=== PATIENT | male | born 1995 | race Caucasian/White ===

== ENCOUNTER 2019-04-30 08:37 | Emergency (ER) | payer OTHER, SELFPAY ==
[2019-04-30 08:40] VITALS: BP 141/88; PULSE 94; RESP 18; TEMP 36.5; O2SAT 100; BMI 25.0
--- NOTE | 2019-04-30 08:46 | ED_ITS ---
HPI - Dizziness General: Chief Complaint: Dizziness Stated Complaint: ams Time Seen by Provider: 04/30/19 08:46 Source: patient Mode of arrival: ambulatory Limitations: no limitations History of Present Illness: HPI Narrative: Patient is a 23-year-old male who presents to ED today with a complaint of presyncope; patient states he was working when he became dizzy/lightheaded, had tunnel vision, felt warm; patient states he knew he was about to pass out so sat down; he apparently has had several previous episodes like this in the past and at one point was told it was caused by dehydration; he denies anxiety/panic attacks; patient states he feels better upon arrival MD elicited complaint: dizziness, lightheadedness and near syncope Onset (ago): minute(s) Timing: sudden onset Severity: mild History of similar symptoms: Yes Exacerbating factors: nothing Relieving factors: nothing Associated symptoms: Reports no associated symptoms; Denies chest pain, chills, headache(s), nausea, palpitations, syncope or vomiting Associated neuro symptoms: Reports no associated symptoms; Deny numbness in extremities Review of Systems Const: Denies: fever or chills Card: Reports: lightheadedness and pre-syncope; Denies: chest pain, palpitations, irregular heart rhythm, syncope or shortness of breath on exertion Resp: Denies: shortness of breath GI: Denies: abdominal pain, nausea or vomiting Musc: Denies: neck pain, back pain or joint pain Skin/Breast: Denies: rash Neuro: Denies: headache, numbness in extremities, weakness in extremities, lack of coordination, difficulty walking, frequent falls or slurred speech Psych: Denies: anxiety PFSH ED PFSH: Statuses (acute, chronic, etc) shown below reflect problem list status as previously entered and may not be historically accurate Social History Smoking and tobacco status: never smoked Physical Exam Const: COMMON NORMALS: no apparent distress, average body habitus, oriented x3, healthy appearing and well nourished EXAM LIMITATIONS: no altered mental status GENERAL APPEARANCE: cooperative ORIENTATION/CONSCIOUSNESS: Yes awake, Yes oriented to person, Yes oriented to place and Yes oriented to time HENMT: COMMON NORMALS: normocephalic and head/scalp atraumatic HEAD & SCALP: normal to inspection, normocephalic and atraumatic Eye: COMMON NORMALS: PERRL and EOMs intact bilaterally PUPIL: Yes PERRL Neck/C-Spine: COMMON NORMALS: full ROM, supple and no meningeal signs Chest: COMMONS NORMALS: inspection of chest normal Resp: COMMON NORMALS: normal respiratory effort and clear to auscultation bilaterally AUSCULTATION: clear to auscultation bilaterally Cardio: COMMON NORMALS: regular rate and regular rhythm RATE: regular rate RHYTHM: regular rhythm GI: COMMON NORMALS: normal to inspection, nondistended, normoactive bowel sounds Extremity: COMMON NORMALS: normal to inspection and full ROM Neuro: SCARLET COMA SCALE: document GCS findings [place] coma scale eye opening: Spontaneous [place] coma scale verbal response: Orientated Scarlet coma scale motor response: Obey commands [place] coma scale total score: 15 COMMON NORMALS: oriented x3, moves all extremities, no focal motor deficits and no sensory deficits noted SENSORIUM/ORIENTATION: Yes oriented to person, Yes oriented to place and Yes oriented to time MENINGEAL SIGNS: Yes no meningeal signs CRANIAL NERVES: Yes CN normal except as noted COORDINATION/BALANCE: [id number] test normal and ukao-yu-gotk test normal SPEECH: speech normal GAIT: Yes normal gait COORDINATION: [id number] test normal and ymii-ta-iisa test normal Psych: COMMON NORMALS: mental status grossly normal Skin: COMMON NORMALS: no rashes or lesions noted GENERAL SKIN EXAM: no rashes or lesions noted Course ED course: [place] [address] XRay Report Signed Patient: Tavon Luna MR#: [id number] : 1995 Acct:[id number] Age/Sex: 23 / M ADM Date: 04/30/19 Loc: ER Attending Dr: Ordering Physician: Jordyn Macario Date of Service: 04/30/19 Procedure(s): XR chest 1V 22148 Accession Number(s): [id number] Report Number: [id number] WS: [id number] Portable AP upright chest, 04/30/2019 day Clinical Data: syncope Comparison: Portable chest, 01/01/2018 Findings: No nodules, masses or effusions are seen. The heart is normal. The pulmonary vascularity is not increased. No pneumonia or pneumothorax is seen. There is a levoscoliosis of the thoracic spine. XR/XR chest 1V 41939 Impression: Negative chest. Dictated By: Tasia Kelsey MD Signed By: Tasia Kelsey MD Signed Date/Time:04/30/19899 DD/ 09 Vital Signs: Vital signs: Vital Signs Temperature 97.9 F 04/30/19 10:04 Pulse Rate 83 04/30/19 10:04 Respiratory Rate 15 04/30/19 10:04 Blood Pressure 120/69 04/30/19 10:04 Pulse Oximetry 100 04/30/19 10:04 MDM - Dizziness MDM Narrative: Medical decision making narrative: pt has had several similar events previously; work up here including labs, trop, ekg, CXR all normal; he has follow up with Dr. Moody next week Lab Data: Attestation: I reviewed the patient's lab results. Labs: Lab Results 04/30/19 04/30/19 04/30/19 Range/Units 08:55 08:55 08:55 WBC 8.6 (4.0-10.0) 10^3/ uL RBC 4.84 (4.1-5.3) 10^6/u L Hgb 14.7 (11.7-16.6) g/dL Hct 43.5 (42.0-52.0) % MCV 89.9 (80-94) fL MCH 30.4 (28.0-34.0) pg MCHC 33.8 (30.0-36.0) g/dL RDW 12.1 (12.1-15.1) % Plt Count 176 (130-400) 10^3/c mm MPV 10.6 H (7.4-10.4) fL Neut % (Auto) 75.9 % Lymph % (Auto) 17.0 % Nuckolls % (Auto) 6.2 % Eos % (Auto) 0.3 % Baso % (Auto) 0.3 % Neut # (Auto) 6.5 (1.8-7.7) 10^3/u L Lymph # (Auto) 1.5 (0.8-4.8) 10^3/u L N[place]olls # (Auto) 0.5 (0.2-0.9) 10^3/u L Eos # (Auto) 0.0 (0.0-0.8) 10^3/u L Baso # (Auto) 0.0 (0.0-0.1) 10^3/u L Nucleated RBC % (a uto) 0 % Nucleated RBCs # 0.0 /100WBC Sodium 140 (136-145) mmol/L Potassium 3.9 (3.5-5.1) mmol/L Chloride 105 (98-107) mmol/L Carbon Dioxide 24 (22-29) mmol/L Anion Gap 14.9 (5-19) BUN 17 (6-20) mg/dL Creatinine 1.0 (0.7-1.2) mg/dL GFR Calculation 94.3 (90-130) mL/min Glucose 112 H (74-109) mg/dL Calcium 10.0 (8.6-10.0) mg/Dl Total Bilirubin 0.4 (0.15-1.2) mg/dL AST 18 (0-40) U/L ALT 18 (0-41) U/L Alkaline Phosphata se 65 (40-130) IU/L Troponin T Baselin e 6 (0-15) ng/mL Total Protein 6.6 (6.6-8.7) g/dL Albumin 5.0 (3.5-5.2) g/dL Globulin 1.6 (1.3-4.6) g/dL Urine Opiates Scre en (Negative) ng/mL Ur Barbiturates Sc reen (Negative) ng/mL Ur Phencyclidine S crn (Negative) ng/mL Ur Amphetamines Sc reen (Negative) ng/mL U Benzodiazepines Scrn (Negative) ng/mL Urine Cocaine Scre en (Negative) ng/mL U Marijuana (THC) Screen (Negative) ng/mL 04/30/19 Range/Units 09:19 WBC (4.0-10.0) 10^3/ uL RBC (4.1-5.3) 10^6/u L Hgb (11.7-16.6) g/dL Hct (42.0-52.0) % MCV (80-94) fL MCH (28.0-34.0) pg MCHC (30.0-36.0) g/dL RDW (12.1-15.1) % Plt Count (130-400) 10^3/c mm MPV (7.4-10.4) fL Neut % (Auto) % Lymph % (Auto) % [place]olls % (Auto) % Eos % (Auto) % Baso % (Auto) % Neut # (Auto) (1.8-7.7) 10^3/u L Lymph # (Auto) (0.8-4.8) 10^3/u L [place]olls # (Auto) (0.2-0.9) 10^3/u L Eos # (Auto) (0.0-0.8) 10^3/u L Baso # (Auto) (0.0-0.1) 10^3/u L Nucleated RBC % (a uto) % Nucleated RBCs # /100WBC Sodium (136-145) mmol/L Potassium (3.5-5.1) mmol/L Chloride (98-107) mmol/L Carbon Dioxide (22-29) mmol/L Anion Gap (5-19) BUN (6-20) mg/dL Creatinine (0.7-1.2) mg/dL GFR Calculation (90-130) mL/min Glucose (74-109) mg/dL Calcium (8.6-10.0) mg/Dl Total Bilirubin (0.15-1.2) mg/dL AST (0-40) U/L ALT (0-41) U/L Alkaline Phosphata se (40-130) IU/L Troponin T Baselin e (0-15) ng/mL Total Protein (6.6-8.7) g/dL Albumin (3.5-5.2) g/dL Globulin (1.3-4.6) g/dL Urine Opiates Scre en Negative (Negative) ng/mL Ur Barbiturates Sc reen Negative (Negative) ng/mL Ur Phencyclidine S crn Negative (Negative) ng/mL Ur Amphetamines Sc reen Negative (Negative) ng/mL U Benzodiazepines Scrn Negative (Negative) ng/mL Urine Cocaine Scre en Negative (Negative) ng/mL U Marijuana (THC) Screen Negative (Negative) ng/mL EKG Data^: EKG 1: Attestation: I personally reviewed and interpreted this EKG as follows: Interpretation: normal sinus Discharge Plan Discharge Patient Disposition: Home, Self-Care Clinical Impression: Pre-syncope Condition: Stable Prescriptions: No Action Ritalin 20 mg Tablet See Rx Instructions .ROUTE .COMPLEX RF: 0 Discharge Orders: Discharge Order (Routine); Ordered 04/30/19 Ordered By: Jordyn Macario Referrals: Akanksha Herzog MD [Primary Care Provider] - Toby Moody MD [Family Provider] - 4-7 days Discharge Activity: Resume usual activity Patient Instructions: Near Syncope (ED) Discharge Date/Time: 04/30/19 10:29 Coding Level of Care Code ED Automation Qa Tester for Edelmira Kunz
--- NOTE | 2019-04-30 08:46 | XR_ITS ---
WS: [id number] Portable AP upright chest, 04/30/2019 Clinical Data: syncope Comparison: Portable chest, 01/01/2018 Findings: No nodules, masses or effusions are seen. The heart is normal. The pulmonary vascularity is not increased. No pneumonia or pneumothorax is seen. There is a levoscoliosis of the thoracic spine. XR/XR chest 1V 39249 Impression: Negative chest.
--- NOTE | 2019-04-30 08:47 | ECG_ITS ---
Measurements Intervals [place] Rate: 76 P: 69 SC: 134 QRS: 52 QRSD: 95 T: 44 QT: 341 QTc: 384 SINUS RHYTHM Compared to ECG 09/14/2018 09:16:06 No significant changes Electronically Signed On 04-30-2019 17:09:28 FURNITURE UPHOLSTERY MECHANIC by Judith Earl M.D. [id number]
[2019-04-30] MEDS: sodium chloride 0.9% 1,000 ML 999 ML IV ×2 (08:57→09:42)
[2019-04-30 08:59] LABS: Basophils % 0.3 %; Eosinophils % 0.3 %; Hematocrit 43.5 % (42.0-52.0); Hemoglobin 14.7 g/dL (11.7-16.6); Lymphocytes # 1.5 10^3/uL (0.8-4.8); Mean Corpuscular HGB Conc 33.8 g/dL (30.0-36.0); Mean Corpuscular Hemoglobin 30.4 pg (28.0-34.0); Mean Corpuscular Volume 89.9 fL (80-94); Mean Platelet Volume 10.6 fL (7.4-10.4); Monocytes # 0.5 10^3/uL (0.2-0.9); Monocytes % 6.2 %; Neutrophils # 6.5 10^3/uL (1.8-7.7); Neutrophils % 75.9 %; Nucleated Red Blood Cells % 0 %; Platelet Count 176 10^3/cmm (130-400); Red Blood Count 4.84 10^6/uL (4.1-5.3); Red Cell Distribution Width 12.1 % (12.1-15.1); White Blood Count 8.6 10^3/uL (4.0-10.0)
[2019-04-30 09:03] LABS: Add RBC Morph No
[2019-04-30 09:09] VITALS: BP 141/88; PULSE 101; RESP 14; TEMP 36.9; O2SAT 98
[2019-04-30 09:16] LABS: Troponin(5th) Baseline 6 ng/mL (0-15)
[2019-04-30 09:17] LABS: Alanine Aminotransferase 18 U/L (0-41); Alkaline Phosphatase 65 IU/L (40-130); Anion Gap 14.9 (5-19); Aspartate Amino Transferase 18 U/L (0-40); Blood Urea Nitrogen 17 mg/dL (6-20); Carbon Dioxide 24 mmol/L (22-29); Chloride 105 mmol/L (98-107); Globulin 1.6 g/dL (1.3-4.6); Glomerular Filtration Rate 94.3 mL/min (90-130); Glucose 112 mg/dL (74-109); Potassium 3.9 mmol/L (3.5-5.1); Sodium 140 mmol/L (136-145); Total Bilirubin 0.4 mg/dL (0.15-1.2); Total Protein 6.6 g/dL (6.6-8.7)
[2019-04-30 09:40] VITALS: BP 120/69; PULSE 82; RESP 16; O2SAT 100
[2019-04-30 10:04] VITALS: BP 120/69; PULSE 83; RESP 15; TEMP 36.6; O2SAT 100
[2019-04-30 10:20] LABS: Amphetamines Screen Urine Negative (Negative); Barbiturates Screen Urine Negative (Negative); Benzodiazepines Screen Urine Negative (Negative); Cocaine Screen Urine Negative (Negative); Opiate Screen Urine Negative (Negative); PCP Screen Urine Negative (Negative); THC Screen Urine Negative (Negative)
--- NOTE | 2019-05-01 10:29 | DCPLANNER ---
flight engineer manager had message that patient is to follow up with Dr. Herzog. flight engineer manager called the office of Dr. Herzog, spoke with Oxana, a follow up appointment is scheduled for Sunday, June 30, 2019 at 12:[address] Herzog. flight engineer manager called patient, spoke with patients mother and gave the mother the appointment information.
--- NOTE | 2019-07-07 14:26 | DCPLANNER ---
Patient did attend appointment scheduled for 06.30.[address] Herzog.
== END 2019-04-30 10:29 | disposition home or self-care (01) ==
PROVIDERS: Emergency Provider Physician Assistant; Family Provider Family Medicine; PCP Specialist
DX: R55 Syncope and collapse (principal)
CPT/HCPCS: 36415; 71045; 80053; 80307; 84484; 85025; 93005; 96360; 96361; 99282; J7030

== ENCOUNTER 2019-05-15 07:28 | Emergency (ER) | payer OTHER, SELFPAY ==
[2019-05-15 07:30] VITALS: BP 142/83; PULSE 103; RESP 18; TEMP 36.5; O2SAT 98; BMI 24.7
--- NOTE | 2019-05-15 07:31 | ED_ITS ---
Entered by Baylee Queen, acting as scribe for HPI - Dizziness General: Chief Complaint: Dizziness Stated Complaint: Weakness, dizzy, shakes Time Seen by Provider: 05/15/19 07:30 Source: patient and family Mode of arrival: ambulatory Limitations: no limitations History of Present Illness: HPI Narrative: 23 yo male presents with dizziness and lightheadedness. 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 Pt states he has had siliamar symptoms in the past and he is wearing a heart monitor right now due to the symptoms by Dr. Herzog. Pt states he started feeling shaky then dizzy. pt states walking and exertion makes this worse and nothing makes this better. 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) Timing: sudden onset Severity: moderate Description: lightheadedness History of similar symptoms: Yes Exacerbating factors: exertion (folding laundry) Relieving factors: nothing Associated symptoms: Reports other (shaky); Denies chest pain, chills, headache(s), malaise, nausea, nasal congestion, palpitations, syncope or vomiting Associated neuro symptoms: Deny confusion, difficulty swallowing or numbness in extremities Review of Systems Const: Denies: fever, chills, body aches, fatigue, malaise or night sweats ENMT: Denies: throat pain, oral sores/lesions, dental pain, nasal discharge or nasal congestion Card: Denies: chest pain, palpitations, irregular heart rhythm, edema, syncope, shortness of breath on exertion, shortness of breath when lying down or leg pain with exertion Resp: Denies: shortness of breath, productive cough, non-productive cough or wheezing GI: Denies: abdominal pain, nausea, vomiting, vomiting blood, coffee grounds in vomit, difficulty swallowing, heartburn/indigestion, diarrhea, constipation, cramping, blood in stool or black tarry stool : Denies: flank pain, difficulty urinating, painful urination, urinary frequency, urinary urgency, urinary incontinence or blood in urine Musc: Denies: neck pain, back pain, extremity pain, extremity swelling, joint pain or joint swelling Skin/Breast: Denies: rash, itching or redness Neuro: Denies: headache, numbness in extremities, weakness in extremities, changes in sensation, lack of coordination, difficulty walking, frequent falls or confusion Psych: Denies: anxiety, depression, loss of interest, visual hallucinations, auditory hallucinations, suicidal ideation or homicidal ideation Endo: Denies: excessive urination, excessive thirst, tired all the time or cold intolerance Aldo/Lymph: Denies: easy bruising, easy bleeding, petechiae, enlarged lymph nodes or tender lymph nodes PFSH ED PFSH: Statuses (acute, chronic, etc) shown below reflect problem list status as previously entered and may not be historically accurate Social History Smoking and tobacco status: never smoked Physical Exam Const: COMMON NORMALS: average body habitus, oriented x3 and alert GENERAL APPEARANCE: cooperative, comfortable, well kempt and well developed NUTRITIONAL APPEARANCE: obese ORIENTATION/CONSCIOUSNESS: Yes awake, Yes oriented to person and Yes oriented to place HENMT: COMMON NORMALS: normocephalic, head/scalp atraumatic, EAC's normal, TM's normal bilaterally, external nose normal, moist oral mucous membranes and oropharynx normal HEAD & SCALP: normocephalic and atraumatic NOSE: external nose normal EXTERNAL AUDITORY CANAL: EAC's normal TYMPANIC MEMBRANE: TM's normal bilaterally MOUTH: oral and palatal mucosa normal, lip normal and tongue normal THROAT: posterior oropharynx normal and tonsils normal Eye: COMMON NORMALS: PERRL, EOMs intact bilaterally, conjunctivae normal and no scleral icterus CONJUNCTIVA: Yes conjunctivae normal PUPIL: Yes PERRL Neck/C-Spine: COMMON NORMALS: full ROM, no lymphadenopathy, supple, no meningeal signs and thyroid normal THYROID: thyroid normal and asymmetrical Lymph: LYMPHATIC: no lymphadenopathy noted Resp: COMMON NORMALS: normal respiratory effort, no retractions, no use of accessory muscles and clear to auscultation bilaterally AUSCULTATION: clear to auscultation bilaterally Cardio: COMMON NORMALS: regular rate and regular rhythm RATE: regular rate RHYTHM: regular rhythm HEART SOUNDS: no murmurs GI: COMMON NORMALS: normal to inspection, nondistended, normoactive bowel sounds, soft to palpation and no hepatosplenomegaly PALPATION: Yes soft and Yes no hepatosplenomegaly : COMMON NORMALS: Yes no CVA tenderness BLADDER/KIDNEY EXAM: Yes no CVA tenderness Back/Pelvis: COMMON NORMALS: no CVA tenderness LUMBAR SPINE/LOWER BACK: Yes normal to inspection Extremity: COMMON NORMALS: no clubbing, cyanosis or edema, no calf tenderness and no pedal edema Neuro: COMMON NORMALS: oriented x3 SENSORIUM/ORIENTATION: Yes alert, Yes oriented to person and Yes oriented to place MENINGEAL SIGNS: Yes no meningeal signs Psych: APPEARANCE: Yes well kempt Skin: COMMON NORMALS: no rashes or lesions noted and skin turgor normal GENERAL SKIN EXAM: no rashes or lesions noted and turgor normal Course ED course: Work-up here in the ER unremarkable. We will go ahead and discharge the patient home he has an ongoing work-up through his primary care doctor encouraged him to complete he has a Holter monitor on this time. We will go ahead and discharge him home. Return if has any problems. Vital Signs: Vital signs: Vital Signs Temperature 97.7 F 05/15/19 07:30 Pulse Rate 87 05/15/19 09:03 Respiratory Rate 16 05/15/19 09:03 Blood Pressure 131/76 05/15/19 09:03 Pulse Oximetry 99 05/15/19 09:03 MDM - Dizziness Lab Data: Labs: Lab Results 05/15/19 05/15/19 05/15/19 Range/Units 07:40 07:40 07:40 WBC 6.0 (4.0-10.0) 10^3/ uL RBC 5.04 (4.1-5.3) 10^6/u L Hgb 14.8 (11.7-16.6) g/dL Hct 44.2 (42.0-52.0) % MCV 87.7 (80-94) fL MCH 29.4 (28.0-34.0) pg MCHC 33.5 (30.0-36.0) g/dL RDW 12.3 (12.1-15.1) % Plt Count 188 (130-400) 10^3/c mm MPV 11.4 H (7.4-10.4) fL Neut % (Auto) 58.0 % Lymph % (Auto) 31.5 % Young % (Auto) 8.8 % Eos % (Auto) 1.0 % Baso % (Auto) 0.5 % Neut # (Auto) 3.5 (1.8-7.7) 10^3/u L Lymph # (Auto) 1.9 (0.8-4.8) 10^3/u L Young # (Auto) 0.5 (0.2-0.9) 10^3/u L Eos # (Auto) 0.1 (0.0-0.8) 10^3/u L Baso # (Auto) 0.0 (0.0-0.1) 10^3/u L Nucleated RBC % (a uto) 0 % Nucleated RBCs # 0.0 /100WBC Sodium 137 (136-145) mmol/L Potassium 3.9 (3.5-5.1) mmol/L Chloride 99 (98-107) mmol/L Carbon Dioxide 24 (22-29) mmol/L Anion Gap 17.9 (5-19) BUN 20 (6-20) mg/dL Creatinine 1.0 (0.7-1.2) mg/dL GFR Calculation 94.3 (90-130) mL/min Glucose 129 H (74-109) mg/dL Calcium 10.1 H (8.6-10.0) mg/Dl Total Bilirubin 1.1 (0.15-1.2) mg/dL AST 22 (0-40) U/L ALT 18 (0-41) U/L Alkaline Phosphata se 63 (40-130) IU/L Troponin T Baselin e 6 (0-15) ng/mL Total Protein 7.4 (6.6-8.7) g/dL Albumin 5.1 (3.5-5.2) g/dL Globulin 2.3 (1.3-4.6) g/dL Urine Color (Yellow) Urine Appearance (CLEAR) Urine pH (5-7) Ur Specific Gravit y (1.005-1.030) Urine Protein (Negative) Urine Glucose (UA) (Normal) Urine Ketones (Negative) Urine Occult Blood (Negative) Urine Nitrate (Negative) Urine Bilirubin (NEGATIVE) Urine Urobilinogen (Negative) mg/dL Ur Leukocyte Elif ase (Negative) 05/15/19 Range/Units 08:17 WBC (4.0-10.0) 10^3/ uL RBC (4.1-5.3) 10^6/u L Hgb (11.7-16.6) g/dL Hct (42.0-52.0) % MCV (80-94) fL MCH (28.0-34.0) pg MCHC (30.0-36.0) g/dL RDW (12.1-15.1) % Plt Count (130-400) 10^3/c mm MPV (7.4-10.4) fL Neut % (Auto) % Lymph % (Auto) % Young % (Auto) % Eos % (Auto) % Baso % (Auto) % Neut # (Auto) (1.8-7.7) 10^3/u L Lymph # (Auto) (0.8-4.8) 10^3/u L Young # (Auto) (0.2-0.9) 10^3/u L Eos # (Auto) (0.0-0.8) 10^3/u L Baso # (Auto) (0.0-0.1) 10^3/u L Nucleated RBC % (a uto) % Nucleated RBCs # /100WBC Sodium (136-145) mmol/L Potassium (3.5-5.1) mmol/L Chloride (98-107) mmol/L Carbon Dioxide (22-29) mmol/L Anion Gap (5-19) BUN (6-20) mg/dL Creatinine (0.7-1.2) mg/dL GFR Calculation (90-130) mL/min Glucose (74-109) mg/dL Calcium (8.6-10.0) mg/Dl Total Bilirubin (0.15-1.2) mg/dL AST (0-40) U/L ALT (0-41) U/L Alkaline Phosphata se (40-130) IU/L Troponin T Baselin e (0-15) ng/mL Total Protein (6.6-8.7) g/dL Albumin (3.5-5.2) g/dL Globulin (1.3-4.6) g/dL Urine Color Yellow (Yellow) Urine Appearance Clear (CLEAR) Urine pH 6 (5-7) Ur Specific Gravit y 1.020 (1.005-1.030) Urine Protein Neg (Negative) Urine Glucose (UA) Norm (Normal) Urine Ketones Negative (Negative) Urine Occult Blood Neg (Negative) Urine Nitrate Negative (Negative) Urine Bilirubin Neg (NEGATIVE) Urine Urobilinogen 1 H (Negative) mg/dL Ur Leukocyte Elif ase Negative (Negative) Imaging Data^: CXR: Radiologist's impression: Portable AP upright chest, 04/30/2019 day Clinical Data: syncope Comparison: Portable chest, 01/01/2018 Findings: No nodules, masses or effusions are seen. The heart is normal. The pulmonary vascularity is not increased. No pneumonia or pneumothorax is seen. There is a levoscoliosis of the thoracic spine. XR/XR chest 1V [id number] Impression: Negative chest. Dictated By: Tasia Kelsey MD EKG Data^: EKG 1: Attestation: I personally reviewed and interpreted this EKG as follows: EKG interpretation date: 05/15/19 EKG interpretation time: 08:15 Ischemic changes: non-specific ST-T wave changes Interpretation: Supraventricular bradycardia with a heart rate of [address] changes narrow QRS complex Discharge Plan Discharge Patient Disposition: Home, Self-Care Clinical Impression: Near syncope Condition: Stable Prescriptions: No Action methylphenidate HCl [Ritalin] 20 mg Tablet See Rx Instructions .ROUTE .COMPLEX RF: 0 Discharge Orders: Discharge Order (Routine); Ordered 05/15/19 Ordered By: Juan Crain Referrals: Akanksha Herzog MD [Primary Care Provider] - Toby Moody MD [Family Provider] - Discharge Diet: Usual diet Discharge Activity: Increase activity as tolerated Activity Restrictions/Additional Instructions: Continue evaluation for these episodes with Dr. Moody as previously scheduled. If you have worsening symptoms or change in symptoms return to the emergency room. Discharge Date/Time: 05/15/19 09:00 Coding Level of Care Code ED Cupola Worker for Chg Fwd Exam Problem Focused The documentation recorded by the Bret robison Bridget Annette, accurately reflects the service I personally performed and the decisions made by Breann lomas Curtis L, DO May 15, 2019 07:28
[2019-05-15 07:43] VITALS: PULSE 81; RESP 17; O2SAT 98
--- NOTE | 2019-05-15 08:00 | XR_ITS ---
WS: [id number] Portable AP upright chest, 05/15/2019 Clinical Data: syncope Comparison: Normal chest, 04/30/2019. Findings: There is an electronic device overlying the midportion of the chest at the T5-T6 level. No nodules, masses or effusions are seen. The heart is normal. The pulmonary vascularity is not remarkab le. No pneumonia or pneumothorax is present. XR/XR chest 1V portable [id number] Impression: Negative chest.
[2019-05-15] MEDS: sodium chloride 0.9% 1,000 ML 999 ML IV (08:04)
[2019-05-15 08:11] LABS: Basophils % 0.5 %; Eosinophils # 0.1 10^3/uL (0.0-0.8); Hematocrit 44.2 % (42.0-52.0); Hemoglobin 14.8 g/dL (11.7-16.6); Lymphocytes # 1.9 10^3/uL (0.8-4.8); Lymphocytes % 31.5 %; Mean Corpuscular HGB Conc 33.5 g/dL (30.0-36.0); Mean Corpuscular Hemoglobin 29.4 pg (28.0-34.0); Mean Corpuscular Volume 87.7 fL (80-94); Mean Platelet Volume 11.4 fL (7.4-10.4); Monocytes # 0.5 10^3/uL (0.2-0.9); Monocytes % 8.8 %; Neutrophils # 3.5 10^3/uL (1.8-7.7); Nucleated Red Blood Cells % 0 %; Platelet Count 188 10^3/cmm (130-400); Red Blood Count 5.04 10^6/uL (4.1-5.3); Red Cell Distribution Width 12.3 % (12.1-15.1)
[2019-05-15 08:25] LABS: Alanine Aminotransferase 18 U/L (0-41); Albumin Level 5.1 g/dL (3.5-5.2); Alkaline Phosphatase 63 IU/L (40-130); Anion Gap 17.9 (5-19); Aspartate Amino Transferase 22 U/L (0-40); Blood Urea Nitrogen 20 mg/dL (6-20); Calcium 10.1 mg/Dl (8.6-10.0); Carbon Dioxide 24 mmol/L (22-29); Chloride 99 mmol/L (98-107); Globulin 2.3 g/dL (1.3-4.6); Glomerular Filtration Rate 94.3 mL/min (90-130); Glucose 129 mg/dL (74-109); Potassium 3.9 mmol/L (3.5-5.1); Sodium 137 mmol/L (136-145); Total Bilirubin 1.1 mg/dL (0.15-1.2); Total Protein 7.4 g/dL (6.6-8.7)
[2019-05-15 08:27] LABS: Troponin(5th) Baseline 6 ng/mL (0-15)
[2019-05-15 08:28] VITALS: BP 113/71; BP 122/69; BP 123/78; PULSE 79; PULSE 86; PULSE 98
[2019-05-15 08:31] VITALS: BP 131/76; PULSE 81; RESP 18; O2SAT 99
[2019-05-15 08:39] LABS: Add Urine Microscopic? NO
[2019-05-15 08:56] LABS: Glucose Urine UA Norm (Normal); Ketones Urine Negative (Negative); Protein Urine Neg (Negative); Urine Appearance Clear (CLEAR); Urine Color Yellow (Yellow); pH Urine 6 (5-7)
[2019-05-15 08:57] LABS: Bilirubin Urine Neg (NEGATIVE); Blood Urine Neg (Negative); Leukocyte Esterase Urine Negative (Negative); Nitrate Urine Negative (Negative); Urobilinogen Urine 1 mg/dL (Negative)
[2019-05-15 09:03] VITALS: BP 131/76; PULSE 87; RESP 16; O2SAT 99
--- NOTE | 2019-05-15 14:01 | ECG_ITS ---
Measurements Intervals [place] Rate: 0 P: OR: 0 QRS: 0 QRSD: 0 T: 0 QT: 0 QTc: 0 SUPRAVENTRICULAR BRADYCARDIA INDETERMINATE AXIS ABNORMAL RHYTHM ECG WARNING: DATA QUALITY MAY AFFECT INTERPRETATION Compared to ECG 04/30/2019 08:47:51 Indeterminate axis now present Sinus rhythm no longer present Electronically Signed On 05-16-2019 11:29:24 REFRACTORY WORKER by Marco Wilson M.D. [id number]
--- NOTE | 2019-05-15 15:15 | DCPLANNER ---
Patient has an appointment scheduled with Dr. Herzog from previous visit to ED.
== END 2019-05-15 09:00 | disposition home or self-care (01) ==
PROVIDERS: Emergency Provider Family Medicine; Family Provider Family Medicine; PCP Specialist
DX: R55 Syncope and collapse (principal)
CPT/HCPCS: 71045; 80053; 81003; 84484; 85025; 93005; 96360; 99283; A9270; J7030

== ENCOUNTER → 2019-06-30 12:31 | Outpatient (BNVA) | payer OTHER, SELFPAY | PROVIDERS: Family Provider Family Medicine; PCP Specialist; Referring Provider Physician Assistant; Visit Provider Specialist | DX: R55 Syncope and collapse (principal) | CPT/HCPCS: 95816; 99204 ==

== ENCOUNTER 2019-07-14 14:49 | Outpatient (CLI) | payer OTHER, SELFPAY ==
--- NOTE | 2019-07-14 15:00 | USCV_ITS ---
Tavon Luna Age: 23 Gender: M : 1995 Exam Date: 07/14/2019 14:58 Ordering Phys: Akanksha Herzog MD Technologist: Yassine Patel Exam Location: [facility] [place] Indication: SYNCOPE BP: 130 / 80 HR: 80 Rhythm: Sinus Technical Quality: MEASUREMENTS (Male / Female) Normal Values 2D ECHO LV Diastolic Diameter PLAX 5.1 cm 4.2 - 5.9 / 3.9 - 5.3 cm LV Systolic Diameter PLAX 3.8 cm IVS Diastolic Thickness 1.1 cm 0.6 - 1.0 / 0.6 - 0.9 cm IVS Systolic Thickness 1.1 cm LVPW Diastolic Thickness 0.8 cm 0.6 - 1.0 / 0.6 - 0.9 cm LVPW Systolic Thickness 1.5 cm LVOT Diameter 2.2 cm LV Ejection Fraction 2D Teich 50.4 % LV Ejection Fraction MOD 2C 50.3 % LV Ejection Fraction 2C AL 51.4 % LA Diameter 3.5 cm LA Width 4.3 cm LA Height 5.1 cm RA Width 3.5 cm RA Height 4.1 cm M-MODE LV Diastolic Diameter MM 5.5 cm 4.2 - 5.9 / 3.9 - 5.3 cm LV Systolic Diameter MM 3.5 cm LV Ejection Fraction MM Teich 66.2 % IVS Diastolic Thickness MM 0.7 cm 0.6 - 1.0 / 0.6 - 0.9 cm IVS Systolic Thickness MM 1.6 cm LVPW Diastolic Thickness MM 1.2 cm 0.6 - 1.0 / 0.6 - 0.9 cm LVPW Systolic Thickness MM 2.1 cm RV Diastolic Diameter MM 1.6 cm Aortic Annulus Diameter 3.5 cm LA Ao Ratio MM 1.0 MV E Point Septal Separation 1.0 cm DOPPLER AV Peak Velocity 114.0 cm/s LVOT Peak Velocity 87.0 cm/s AV Area Cont Eq vti 2.7 cm squared AV Area Cont Eq pk 2.9 cm squared MV Area PHT 5.0 cm squared Mitral E to A Ratio 1.3 MV E' Velocity 14.0 cm/s Mitral E to MV E' Ratio 5.2 Mitral E to LV E' Lateral Ratio 5.5 Mitral E to LV E' Septal Ratio 5.0 TR Peak Velocity 140.0 cm/s TR Peak Gradient 7.8 mmHg TV Peak E Velocity 87.0 cm/s Right Atrial Pressure 3.0 mmHg Pulmonary Artery Systolic Pressu 10.8 mmHg FINDINGS Left Ventricle Normal left ventricular size and systolic function, EF 55 %. No regional wall motion abnormalities. Right Ventricle The right ventricle is normal in size and function. Right Atrium The right atrium is normal in size. Left Atrium The left atrium is normal in size. Mitral Valve No gross abnormalities noted Aortic Valve No gross abnormalities noted Tricuspid Valve Structurally normal tricuspid valve. Pulmonic Valve Structurally normal pulmonic valve without significant stenosis. There is no pulmonic regurgitation. Pericardium Normal pericardium without effusion. Aorta Normal ascending aorta dimension. CONCLUSIONS Normal left ventricular size and systolic function, EF 55 %. No regional wall motion abnormalities. No significant valvular abnormalities. No significant stenotic or regurgitant lesions Normal chamber sizes. There is no pericardial effusion. There are no intracardiac masses. No intracardiac shunts by color flow Doppler examination. No previous study is available for comparison. Dr Parul Fu MD FACC (Electronically Signed) Final Date: 15 July 2019 08:47 S
== END 2019-07-14 14:50 | disposition home or self-care (01) ==
LOC: US 14:51
PROVIDERS: Family Provider Family Medicine; Visit Provider Specialist
DX: R55 Syncope and collapse (principal)
CPT/HCPCS: 93306

== ENCOUNTER 2020-01-20 13:35 | Outpatient (RCR) | payer OTHER, SELFPAY | END 2020-01-27 14:43 | disposition home or self-care (01) | LOC: SPT 13:35 | PROVIDERS: PCP Family Medicine; Referring Provider Family Medicine; Visit Provider Family Medicine | DX: M54.6 Pain in thoracic spine (principal) | CPT/HCPCS: 97110; 97161 ==

== ENCOUNTER → 2020-06-27 14:45 | Outpatient (BNVA) | payer OTHER, SELFPAY | PROVIDERS: PCP Family Medicine; Visit Provider Specialist | DX: G25.0 Essential tremor (principal); F90.9 Attention-deficit hyperactivity disorder, unspecified type | CPT/HCPCS: 99213 ==